=== PATIENT | female | born 1985 | race Caucasian/White ===

== ENCOUNTER → 2019-06-22 | Outpatient (CLI) | payer BC ==
--- NOTE | 2019-06-22 15:39 | KCIC ---
BRAIN W/O CONTRAST Date: 06/22/2019 12:30 PM Indication: Diplopia Comparison: None. Technique: Multiplanar multisequence MRI of the brain was performed without intravenous contrast using the standard protocol. Findings: No acute infarct. No acute or chronic hemorrhage. The ventricles are normal in size and configuration without hydrocephalus. Minimal scattered FLAIR hyperintensities in the subcortical and periventricular deep white matter, a nonspecific finding, appropriate for patient age. The scalp and calvarium are normal. The pituitary and sella are normal. No Chiari malformation. The visualized upper cervical spine is normal. The visualized orbits and globes are normal. The visualized paranasal sinuses are clear. The mastoid air cells are clear. Normal flow voids within the vertebral, basilar, and internal carotid arteries indicating patency. IMPRESSION: No acute infarct, hemorrhage, mass, or hydrocephalus. Electronically signed by: Jose Kaur MD (06/22/2019 3:36 PM) [facility]
== END | disposition home or self-care (01) ==
LOC: KCIC MRI 12:08
PROVIDERS: ATTEND Physician Assistant Medical
DX: H53.2 Diplopia (principal)
CPT/HCPCS: 70551